=== PATIENT | male | born 1990 | race Caucasian/White ===

== ENCOUNTER → 2020-03-24 | Outpatient (CLI) | payer BC | LOC: COL.RAD 03-22 11:00 | DX: K51.90 Ulcerative colitis, unspecified, without complications (principal); N26.1 Atrophy of kidney (terminal) | CPT/HCPCS: Q9967 ==

== ENCOUNTER → 2020-04-27 | Outpatient (CLI) | payer BC | LOC: COL.VAS 14:29 | DX: Q24.9 Congenital malformation of heart, unspecified (principal); I08.1 Rheumatic disorders of both mitral and tricuspid valves ==